=== PATIENT | female | born 1970 | race Caucasian/White ===

== ENCOUNTER 2017-09-24 14:54 | Emergency (ER) | payer MEDICARE, MEDICAID ==
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
[2017-09-24] MEDS ORDERED: Sodium Chloride 0.9% 1,000 ML IV SCH (16:30)
[2017-09-24] MEDS ORDERED: Iopamidol 612 MG/ML 150 ML Bottle IV SCH (17:15)
[2017-09-24] MEDS ORDERED: Sodium Chloride 0.9% 100 ML IV SCH (17:15)
[2017-09-24 18:35] VITALS: BP 109/45
== END 2017-09-24 19:03 | disposition critical access hospital (66) ==
LOC: JP.ED 14:54
DX: R10.12 Left upper quadrant pain (principal); D64.9 Anemia, unspecified; Z98.0 Intestinal bypass and anastomosis status; F17.210 Nicotine dependence, cigarettes, uncomplicated; J44.9 Chronic obstructive pulmonary disease, unspecified; K21.9 Gastro-esophageal reflux disease without esophagitis; M19.90 Unspecified osteoarthritis, unspecified site; F41.9 Anxiety disorder, unspecified; F32.9 Major depressive disorder, single episode, unspecified; E66.9 Obesity, unspecified; Z79.899 Other long term (current) drug therapy; Z88.5 Allergy status to narcotic agent; Z88.6 Allergy status to analgesic agent; Z88.2 Allergy status to sulfonamides
CPT/HCPCS: 36415; 74177; 80053; 80305; 81001; 82150; 83605; 83690; 85025; 96360; 99285; J7030; J7040

== ENCOUNTER 2017-09-25 08:35 | Day surgery (SDC) | payer MEDICARE, MEDICAID ==
[~2017-09-25 08:35] MED LIST: Cyanocobalamin (Vitamin B12) 1,000 MCG/ML SDV IM ONE; Lactated Ringers 1,000 ML IV SCH
[2017-09-25] MEDS ORDERED: MVI, Adult with Vitamin K 10 ML, Thiamine 200 MG, Chromium/Copper/Mang/Selen/Zn 1 ML in... IV ONE ×4 (09:00)
[2017-09-25] MEDS ORDERED: MVI, Adult with Vitamin K 10 ML, Thiamine 100 MG, Chromium/Copper/Mang/Selen/Zn 1 ML in... IV ONE ×4 (09:15)
[2017-09-25] MEDS ORDERED: Glycopyrrolate 0.2 MG/ML 2 ML SDV IVPUSH ONE (09:45)
[2017-09-25] MEDS ORDERED: Midazolam 1 MG/ML 2 ML SDV ONE (10:15)
[2017-09-25] MEDS ORDERED: Propofol 200 MG/20 ML SDV ONE (10:15)
[2017-09-25] MEDS ORDERED: fentaNYL 100 MCG/2 ML SDV ONE (10:15)
[2017-09-25 13:36] VITALS: BP 112/59
--- NOTE | 2017-09-28 12:59 | OR ---
DATE OF PROCEDURE: 09/25/2017 PREOPERATIVE DIAGNOSIS: Epigastric pain. POSTOPERATIVE DIAGNOSES: Epigastric pain associated with mild pouch gastritis. OPERATIVE PROCEDURE: Upper GI endoscopy with biopsies of gastric pouch for CLOtest. ANESTHESIA: IV sedation. INDICATION FOR PROCEDURE: This is a 47-year-old status post Tessa-en-Y gastric bypass presenting with some ongoing epigastric pain. The patient is presently on omeprazole 40 mg a day, and she thinks that is not as helpful as the Protonix that she had previously been on. Plan is to proceed with an upper GI endoscopy with biopsies or dilation as indicated. Potential risks including bleeding and perforation were discussed, and the patient wishes to proceed. DETAILS OF PROCEDURE: The patient was taken to the operating room and placed in a left lateral decubitus position. IV sedation was administered, after which the upper GI endoscope was passed orally through the length of the esophagus and into the gastric pouch, from there through the gastrojejunostomy, roughly 20 cm into the Tessa limb. Findings included normal esophagus and EG junction area. There was some mild redness within the gastric pouch, but no erosions or ulcers were seen. The gastrojejunostomy was widely patent with no marginal ulcers present and the remainder of the Tessa limb was unremarkable. There was some retained, old, scattered amounts of food within the distal esophagus, pouch, and proximal small bowel, but that normalized beyond that. This did not appear to be related to an obstructive event, but probably some impaired motility in that region of the GI tract. Biopsies were obtained from the gastric pouch, sent for CLOtest for H. pylori. Minimal bleeding from the biopsy sites was seen and the procedure then concluded. Plan will be to switch the patient back over to Protonix 40 mg a day. A prescription for that will be written and she will be instructed to stop the omeprazole. A full set of bariatric labs was obtained. This included a hemoglobin in the 9.6 range and ferritin of 7. Given this, patient was postoperatively given 510 mg of Feraheme and with instructions to get a second infusion at the [facility]. Otherwise, follow up with Arianna Rivero will be in 1 month. Israel Rodriguez MD /[id number]
== END 2017-09-25 13:15 | disposition home or self-care (01) ==
LOC: JP.SDS 08:35
PROVIDERS: ATTEND Surgery
DX: K29.60 Other gastritis without bleeding (principal); Z79.899 Other long term (current) drug therapy; Z98.84 Bariatric surgery status
CPT/HCPCS: 36415; 43239; 80053; 81025; 82525; 82607; 82728; 82746; 83735; 83880; 84100; 84425; 84630; 85027; 87081; J2250; J2704; J3010; J3411; J3420; J7042; J7120; J3490